=== PATIENT | female | born 1940 | race Caucasian/White ===

== ENCOUNTER 2017-09-13 14:25 | Outpatient (CLI) | payer MEDICARE | END 2017-09-13 14:26 | disposition home or self-care (01) | LOC: BICMAMMO 14:25 | PROVIDERS: ATTEND Family Medicine | DX: Z12.31 Encounter for screening mammogram for malignant neoplasm of breast (principal); Z85.3 Personal history of malignant neoplasm of breast | CPT/HCPCS: 77065; G0279 ==

== ENCOUNTER 2017-09-21 14:32 | Outpatient (CLI) | payer MEDICARE | END 2017-09-21 14:33 | disposition home or self-care (01) | LOC: BICCT 14:32 | PROVIDERS: ATTEND Anesthesiology Pain Medicine | DX: M47.22 Other spondylosis with radiculopathy, cervical region (principal) | CPT/HCPCS: 72125 ==

== ENCOUNTER 2018-10-17 13:55 | Outpatient (CLI) | payer MEDICARE ==
--- NOTE | 2018-10-17 14:37 | MMO ---
Bilateral MAMMO Bilat Screen [facility]. CLINICAL HISTORY: Patient is 78 years old and is seen for screening. The patient has no family history of breast cancer. The patient has a history of malignant (generic) in the left breast 1996. The patient has a history of left Ultrasound Guided Core Biopsy in 2017 - benign, right Mastectomy - malignant and left Excisional Biopsy in 1996 - dcis. VIEWS: The views performed were: bilateral craniocaudal with tomosynthesis and bilateral mediolateral oblique with tomosynthesis. FILMS COMPARED: The present examination has been compared to prior imaging studies performed at [facility] on 08/01/2014, 08/03/2015, 02/02/2016, 08/05/2016 and 09/13/2017. MAMMOGRAM FINDINGS: The breast is extremely dense, which may lower the sensitivity of mammography. There are benign appearing calcifications with grouped or clustered distribution and associated biopsy clip seen in the left breast at 12 o'clock. The patient reports benign biopsy of these calcifications. There are no suspicious masses, suspicious calcifications, or new areas of architectural distortion. IMPRESSION: THERE IS NO MAMMOGRAPHIC EVIDENCE OF MALIGNANCY. A ROUTINE FOLLOW-UP MAMMOGRAM IN 1 YEAR IS RECOMMENDED. THE RESULTS OF THIS EXAM WERE SENT TO THE PATIENT. ACR BI-RADS Category 2 - Benign finding MAMMOGRAPHY NOTE: 1. A negative mammogram report should not delay a biopsy if a dominant of clinically suspicious mass is present. 2. Approximately 10% to 15% of breast cancers are not detected by mammography. 3. Adenosis and dense breasts may obscure an underlying neoplasm.
== END 2018-10-17 13:56 | disposition home or self-care (01) ==
LOC: BICMAMMO 13:55
PROVIDERS: ATTEND Family Medicine
DX: Z12.31 Encounter for screening mammogram for malignant neoplasm of breast (principal); Z85.3 Personal history of malignant neoplasm of breast; Z90.11 Acquired absence of right breast and nipple
CPT/HCPCS: 77063; 77067

== ENCOUNTER 2018-11-07 11:34 | Day surgery (SDC) | payer MEDICARE ==
[2018-11-06 11:30] VITALS: BMI 31.1
[2018-11-07] MEDS ORDERED: Bupivacaine HCl 0.5%/Epinephrine 1:200,000/PF 30 ml Vial ONE (13:00)
[2018-11-07] MEDS ORDERED: Sodium Chloride 0.9% 10 ML ONE (13:00)
[2018-11-07] MEDS ORDERED: Propofol 500 MG/50 ML VIAL ONE (13:12)
[2018-11-07] MEDS ORDERED: Fentanyl 100 MCG/2 ML VIAL ONE (13:12)
[2018-11-07] MEDS ORDERED: Midazolam HCl 5 mg/5 ml Vial ONE (13:31)
--- NOTE | 2018-11-08 12:43 | OP ---
DATE OF PROCEDURE: 11/07/2018 PREOPERATIVE DIAGNOSES: 1. [employer] spinal cord stimulation generator depletion. 2. Chronic pain. 3. Postlaminectomy syndrome with chronic radiculopathy. POSTOPERATIVE DIAGNOSES: 1. [employer] spinal cord stimulation generator depletion. 2. Chronic pain. 3. Postlaminectomy syndrome with chronic radiculopathy. PROCEDURES PERFORMED: 1. Removal of existing internal pulse generator, [employer]. 2. Implantation of a new [employer] rechargeable stimulator pulse generator. ANESTHESIA: TIVA. COMPLICATIONS: None. SUMMARY: Risks and benefits were discussed. Informed consent was obtained. She was taken to the OR, prepped and draped in standard fashion. Fluoroscopic guidance and examination were used to identify the prior IPG. ChloraPrep was used for sterile prep and let dry. Sterile drape, standard procedure. 1% lidocaine with 0.5% Marcaine with epinephrine was used for skin and subcutaneous anesthesia. Incision was carried down over the IPG over the existing healed scar, blunt dissection down to the IPG, it was easily identified, externalized, and using the supplied ratcheted screwdriver, the leads and set screws were loosened. The leads were removed from the depleted IPG and the depleted IPG was removed from the site, completing the explant. The new internal pulse generator was then placed, brought to the field. The leads were connected, set screws were tightened using the ratcheted screwdriver. The IPG was placed in the pocket riding side out. The [employer] employee representative checked all impedances, and all electrodes and contacts were functioning with low impedance. Closure was accomplished with 2-0 Vicryl in layers and the skin was closed with a running subcuticular 4-0 Rapide. Dermabond, 4x4s, and Medipore tape were used for dressing. There were no complications. Further programming ensued in the recovery period. Prior to closure, all counts were correct x2. Job ID: [id number]
--- NOTE | 2018-11-13 18:23 | EKG ---
Test Reason : PREOP Blood Pressure : / mmHG Vent. Rate : 061 BPM Atrial Rate : 061 BPM P-R Int : 142 ms QRS Dur : 084 ms QT Int : 422 ms P-R-T Axes : 054 048 043 degrees QTc Int : 424 ms Normal sinus rhythm Normal ECG When compared with ECG of 06-MAR-1997 16:43, No significant change was found Confirmed by YENY NICKERSON (2) on 11/13/2018 6:22:44 PM Referred By: LUIZ Confirmed By:YENY NICKERSON
== END 2018-11-07 16:50 | disposition home or self-care (01) ==
LOC: SDC 11:34
PROVIDERS: ATTEND Anesthesiology Pain Medicine
PROC: 0JH70BZ Insertion of Single Array Stimulator Generator into Back Subcutaneous Tissue and Fascia, Open Approach (ICD-10-PCS; principal; 2018-11-07)
DX: M96.1 Postlaminectomy syndrome, not elsewhere classified (principal); M54.10 Radiculopathy, site unspecified; G89.29 Other chronic pain; Z79.899 Other long term (current) drug therapy; Z88.5 Allergy status to narcotic agent; Z88.4 Allergy status to anesthetic agent
CPT/HCPCS: 76000; 93005; 93010; J0670; J2250; J2704; J3010; J3490

== ENCOUNTER 2022-03-08 14:19 | Outpatient (CLI) | payer MEDICARE | END 2022-03-08 14:20 | disposition home or self-care (01) | LOC: SCSRAD 14:19 | PROVIDERS: ATTEND Anesthesiology Pain Medicine | DX: M16.12 Unilateral primary osteoarthritis, left hip (principal); Z98.890 Other specified postprocedural states ==